=== PATIENT | female | born 2000 | race Hispanic/Latino ===

== ENCOUNTER 2019-06-19 22:05 | Inpatient (IN) | payer MEDICAID | END 2019-06-22 14:30 | disposition home or self-care (01) | LOC: LDH 22:05 → WSH 06-20 19:00 | PROC: 10D00Z1 Extraction of Products of Conception, Low, Open Approach (ICD-10-PCS; principal; 2019-06-20 15:58) | DX: O32.4XX0 Maternal care for high head at term, not applicable or unspecified (principal); O24.420 Gestational diabetes mellitus in childbirth, diet controlled; Z37.0 Single live birth; Z3A.39 39 weeks gestation of pregnancy ==